=== PATIENT | female | born 1975 | race Caucasian/White ===

== ENCOUNTER 2022-07-01 10:22 | Emergency (ER) | payer OTHER, MEDICAID ==
[~2022-07-01] VITALS: Ht 165.1 cm; Wt 62.0 kg
[2022-07-01 10:48] LABS: BASOPHILS # (AUTO) 0.1 X10'3 (0-0.2); BASOPHILS % (AUTO) 0.4 % (0-1); EOSINOPHILS # (AUTO) 0.2 X10'3 (0-0.9); EOSINOPHILS % (AUTO) 1.2 % (0-6); HEMOGLOBIN 12.1 g/dl (12.0-16.0); LYMPHOCYTES # (AUTO) 3.1 X10'3 (1.1-4.8); LYMPHOCYTES % (AUTO) 17.7 % (21-51); MEAN CORPUSCULAR HEMOGLOBIN 24.5 PG (27.0-31.0); MEAN CORPUSCULAR HGB CONC 31.8 g/dL (33.0-36.5); MEAN CORPUSCULAR VOLUME 77.1 FL (78-98); MEAN PLATELET VOLUME 7.6 FL (7.4-10.4); MONOCYTES # (AUTO) 0.6 X10'3 (0-0.9); MONOCYTES % (AUTO) 3.7 % (2-12); NEUTROPHILS # (AUTO) 13.3 X10'3 (1.8-7.7); PLATELET COUNT 371 X10'3 (140-440); RED BLOOD COUNT 4.93 X10'6 (4.20-5.60); RED CELL DISTRIBUTION WIDTH 18.6 % (11.5-14.5); WHITE BLOOD COUNT 17.3 X10'3 (4.5-11.0)
[2022-07-01 11:00] LABS: ALANINE AMINOTRANSFERASE 20 U/L (12-78); ALBUMIN 3.9 G/DL (3.4-5.0); ALBUMIN/GLOBULIN RATIO 0.9 (1.1-1.5); ALKALINE PHOSPHATASE 78 IU/L (46-116); AMYLASE 71 U/L (25-115); ANION GAP 8 (8-16); ASPARTATE AMINO TRANSFERASE 15 U/L (10-37); BILIRUBIN,TOTAL 0.4 MG/DL (0.1-1.0); BLOOD UREA NITROGEN 10 MG/DL (7-18); BUN/CREATININE RATIO 15.6 (6.6-38.0); CALCIUM 9.4 MG/DL (8.5-10.1); CHLORIDE 101 MMOL/L (99-107); CREATININE 0.64 MG/DL (0.40-0.90); GLUCOSE 100 MG/DL (70-104); LIPASE 144 U/L (73-393); POTASSIUM 3.9 MMOL/L (3.5-5.1); SODIUM 136 MMOL/L (135-145); TOTAL CARBON DIOXIDE 26.8 MMOL/L (24-32); TOTAL PROTEIN 8.4 G/DL (6.4-8.2); eGFR > 90 ML/MIN
[2022-07-01 11:40] LABS: URINE HCG NEGATIVE (NEG)
[2022-07-01 11:45] LABS: CLARITY,URINE CLOUDY (Clear); GLUCOSE, URINE NEGATIVE (Neg); KETONES,URINE TRACE mg/dl (Neg); LEUKOCYTE ESTERASE ,URINE NEGATIVE (Neg); NITRITES, URINE POSITIVE (Neg); OCCULT BLOOD,URINE SMALL (Neg); PH,URINE 5.5 (4.8-8.0); PROTEIN,URINE TRACE mg/dl (Neg); UROBILINOGEN,URINE 0.2 E.U/dL (0.2-1.0)
[2022-07-01 11:55] LABS: COLOR,URINE DARK YELLOW (Yellow); UA COLLECTION TYPE CLN CATCH MIDSTREAM
[2022-07-01 12:00] LABS: ANISOCYTOSIS 2+; MICROCYTOSIS 1+; PLATELET ESTIMATE NORMAL
[2022-07-01 12:09] LABS: BACTERIA,URINE 4+ /HPF (Neg); MUCUS STRANDS MODERATE /LPF (Neg); RBC,URINE 0-2 /HPF (0-2); SQUAMOUS EPITHELIAL CELL,UR MODERATE /LPF (FEW); WBC,URINE 0-4 /HPF (0-4)
[2022-07-01] MEDS ORDERED: ondansetron/PF 4mg/2ml inj IV ONE (12:50)
[2022-07-01] MEDS ORDERED: morphine 4 MG/ML inj SYRINge IV ONE (12:50)
[2022-07-01] MEDS ORDERED: nitrofuran monohydrate/nitrofuran macrocrysal 100 MG (MacroBID) capsule PO ONE (13:40)
[2022-07-01] MEDS ORDERED: LIDOcaine Viscous 15ml cup MM PRN (15:00)
[2022-07-01] MEDS ORDERED: magnesium hydroxide 30ml (MOM) UD suspension PO ONE (15:00)
[2022-07-01] MEDS ORDERED: OMEP40CA21 PO (15:26)
[2022-07-01] MEDS ORDERED: SUCR1TAB PO (15:26)
[2022-07-01] MEDS ORDERED: DICY10CA88 PO (15:49)
[2022-07-01 16:12] VITALS: BP 140/94
[2022-07-01] MEDS ORDERED: NITR100C6 PO (16:45)
== END 2022-07-01 16:17 | disposition home or self-care (01) ==
LOC: ER 10:23
DX: R10.13 Epigastric pain (principal); Z88.1 Allergy status to other antibiotic agents; Z79.899 Other long term (current) drug therapy
CPT/HCPCS: 36415; 74176; 76700; 80053; 81001; 81025; 82150; 83690; 85008; 85025; 87077; 87088; 87186; 93005; 96374; 96375; 99285; J2270; J2405

== ENCOUNTER 2022-07-06 17:44 | Emergency (ER) | payer OTHER, MEDICAID ==
[~2022-07-06] VITALS: Ht 165.1 cm; Wt 62.0 kg
[~2022-07-06 17:44] MED LIST: DICY10CA88 PO; NITR100C6 PO; OMEP40CA21 PO; SUCR1TAB PO
[2022-07-06] MEDS ORDERED: morphine 4 MG/ML inj SYRINge IV PRN (18:00)
[2022-07-06] MEDS ORDERED: ondansetron/PF 4mg/2ml inj IV ONE (18:00)
[2022-07-06] MEDS ORDERED: normal saline 1000ML IV soln IVB ONE (18:00)
[2022-07-06] MEDS: diatr meglu/diatrizoate 30ml oral sol.-(3 dose) bottle PO SCH ×2 (18:00→18:45)
[2022-07-06 18:32] LABS: BASOPHILS # (AUTO) 0.1 X10'3 (0-0.2); BASOPHILS % (AUTO) 0.9 % (0-1); EOSINOPHILS # (AUTO) 0.3 X10'3 (0-0.9); EOSINOPHILS % (AUTO) 3.3 % (0-6); HEMATOCRIT 36.8 % (35.0-45.0); HEMOGLOBIN 11.5 g/dl (12.0-16.0); LYMPHOCYTES # (AUTO) 3.7 X10'3 (1.1-4.8); LYMPHOCYTES % (AUTO) 36.8 % (21-51); MEAN CORPUSCULAR HGB CONC 31.1 g/dL (33.0-36.5); MEAN CORPUSCULAR VOLUME 77.2 FL (78-98); MEAN PLATELET VOLUME 7.7 FL (7.4-10.4); MONOCYTES # (AUTO) 0.5 X10'3 (0-0.9); MONOCYTES % (AUTO) 5.3 % (2-12); NEUTROPHILS # (AUTO) 5.4 X10'3 (1.8-7.7); NEUTROPHILS % (AUTO) 53.7 % (42-75); PLATELET COUNT 340 X10'3 (140-440); RED BLOOD COUNT 4.77 X10'6 (4.20-5.60); RED CELL DISTRIBUTION WIDTH 18.3 % (11.5-14.5); WHITE BLOOD COUNT 10.1 X10'3 (4.5-11.0)
[2022-07-06 18:45] LABS: ALANINE AMINOTRANSFERASE 18 U/L (12-78); ALBUMIN 3.9 G/DL (3.4-5.0); ALBUMIN/GLOBULIN RATIO 0.9 (1.1-1.5); ALKALINE PHOSPHATASE 79 IU/L (46-116); ANION GAP 8 (8-16); ASPARTATE AMINO TRANSFERASE 21 U/L (10-37); BILIRUBIN,TOTAL 0.3 MG/DL (0.1-1.0); BLOOD UREA NITROGEN 12 MG/DL (7-18); BUN/CREATININE RATIO 21.4 (6.6-38.0); CALCIUM 9.1 MG/DL (8.5-10.1); CHLORIDE 101 MMOL/L (99-107); CREATININE 0.56 MG/DL (0.40-0.90); GLUCOSE 99 MG/DL (70-104); LIPASE 160 U/L (73-393); POTASSIUM 3.8 MMOL/L (3.5-5.1); SODIUM 136 MMOL/L (135-145); TOTAL CARBON DIOXIDE 27.3 MMOL/L (24-32); TOTAL PROTEIN 8.2 G/DL (6.4-8.2); eGFR > 90 ML/MIN
[2022-07-06 19:31] LABS: CLARITY,URINE SLIGHTLY CLOUDY (Clear); COLOR,URINE YELLOW (Yellow); GLUCOSE, URINE NEGATIVE (Neg); KETONES,URINE NEGATIVE (Neg); LEUKOCYTE ESTERASE ,URINE NEGATIVE (Neg); NITRITES, URINE NEGATIVE (Neg); OCCULT BLOOD,URINE NEGATIVE (Neg); PH,URINE 5.5 (4.8-8.0); PROTEIN,URINE NEGATIVE (Neg); UROBILINOGEN,URINE 0.2 E.U/dL (0.2-1.0)
[2022-07-06 19:41] LABS: UA COLLECTION TYPE CLN CATCH MIDSTREAM
[2022-07-06 19:53] LABS: WBC,URINE 0-4 /HPF (0-4)
[2022-07-06 19:54] LABS: BACTERIA,URINE FEW /HPF (Neg); MUCUS STRANDS FEW /LPF (Neg); SQUAMOUS EPITHELIAL CELL,UR MODERATE /LPF (FEW)
[2022-07-06] MEDS ORDERED: iohexol 300mg/ml 100ml inj. ONE (20:05)
[2022-07-06 20:36] VITALS: BP 157/99
--- NOTE | 2022-07-06 21:58 | NUR ---
Agree with assessment done by CANVAS SHRINKER.
== END 2022-07-06 22:20 | disposition home or self-care (01) ==
LOC: ER 17:45
DX: R10.13 Epigastric pain (principal); Z88.1 Allergy status to other antibiotic agents
CPT/HCPCS: 36415; 74177; 80053; 81001; 83690; 85025; 96361; 96374; 96375; 99285; J2270; J2405; J3490; J7030; Q9963; Q9967

== ENCOUNTER 2022-10-03 20:36 | Emergency (ER) | payer OTHER, MEDICAID ==
[~2022-10-03] VITALS: Ht 165.1 cm; Wt 63.6 kg
[~2022-10-03 20:36] MED LIST changes: -DICY10CA88 PO; -OMEP40CA21 PO
[2022-10-03] MEDS ORDERED: OXYC-150 PO (22:29)
[2022-10-03] MEDS ORDERED: oxyCODONE/APAP 10/325mg tablet PO ONE (22:30)
[2022-10-03 22:58] VITALS: BP 155/95
== END 2022-10-03 22:59 | disposition home or self-care (01) ==
LOC: ER 20:37
DX: M54.50 Low back pain, unspecified (principal); Z88.1 Allergy status to other antibiotic agents
CPT/HCPCS: 99283

== ENCOUNTER 2023-03-17 15:16 | Emergency (ER) | payer OTHER, MEDICAID ==
[~2023-03-17] VITALS: Ht 165.1 cm; Wt 58.6 kg
[~2023-03-17 15:16] MED LIST changes: +OXYC-150 PO
[2023-03-17 15:17] VITALS: TEMP 98.9
--- NOTE | 2023-03-17 16:44 | NUR ---
Silva ryan in ED - 03/17/23 at 1645 by TAI NO INJURIES DECLARED BY PT.
--- NOTE | 2023-03-17 16:45 | NUR ---
CAFETERIA AIDE ASSESSMENT REVIEWED BY ANNA RN; APPROVED
[2023-03-17] MEDS ORDERED: ketorolac trometh inj. 60 MG/2 ML VIAL IM ONE (17:05)
[2023-03-17] MEDS ORDERED: CYCL-1 PO (17:07)
[2023-03-17] MEDS ORDERED: PRED20TA PO (17:07)
[2023-03-17 17:42] VITALS: BP 130/66; PULSE 68; RESP 16; O2SAT 96
--- NOTE | 2023-03-17 18:04 | NUR ---
NAVIGATING OFFICER ASSESSMENT REVIEWED BY ANNA RN; APPROVED
== END 2023-03-17 17:42 | disposition home or self-care (01) ==
LOC: ER 15:17
DX: S39.012A Strain of muscle, fascia and tendon of lower back, initial encounter (principal); F17.200 Nicotine dependence, unspecified, uncomplicated; Z88.1 Allergy status to other antibiotic agents; Z79.899 Other long term (current) drug therapy; W18.40XA Slipping, tripping and stumbling without falling, unspecified, initial encounter; Y93.89 Activity, other specified; Y92.89 Other specified places as the place of occurrence of the external cause; Y99.8 Other external cause status
CPT/HCPCS: 96372; 99283; J1885

== ENCOUNTER 2023-08-19 11:35 | Emergency (ER) | payer OTHER, MEDICAID ==
[~2023-08-19] VITALS: Ht 165.1 cm; Wt 68.2 kg
[~2023-08-19 11:35] MED LIST changes: +CYCL-1 PO
[2023-08-19 11:37] VITALS: BP 157/99; PULSE 103; TEMP 98; O2SAT 99
[2023-08-19] MEDS ORDERED: ketorolac trometh inj. 60 MG/2 ML VIAL IM ONE (14:00)
[2023-08-19] MEDS ORDERED: PRED20TA PO (14:00)
[2023-08-19] MEDS: diazepam inj 5 MG/ML inj. IM ONE (14:40)
[2023-08-19 14:41] VITALS: RESP 16
[2023-08-19] MEDS: ketorolac trometh. 30mg/ml inj. IM ONE (14:41)
== END 2023-08-19 14:54 | disposition home or self-care (01) ==
LOC: ER 11:35
DX: S39.012A Strain of muscle, fascia and tendon of lower back, initial encounter (principal); M54.31 Sciatica, right side; F17.200 Nicotine dependence, unspecified, uncomplicated; Z88.1 Allergy status to other antibiotic agents; Z79.899 Other long term (current) drug therapy; W19.XXXA Unspecified fall, initial encounter; Y93.89 Activity, other specified; Y92.89 Other specified places as the place of occurrence of the external cause; Y99.8 Other external cause status
CPT/HCPCS: 96372; 99284; J1885; J3360; L4360

== ENCOUNTER 2024-06-16 12:12 | Emergency (ER) | payer OTHER, MEDICAID ==
[~2024-06-16] VITALS: Ht 165.1 cm; Wt 68.1 kg
[2024-06-16 12:17] VITALS: BP 162/91; PULSE 97; O2SAT 98
[2024-06-16] MEDS ORDERED: HYDR-3965 PO (14:09)
[2024-06-16 14:18] VITALS: RESP 16; TEMP 98
[2024-06-18] MEDS ORDERED: ONDA-243 PO (12:52)
[2024-06-18] MEDS ORDERED: HYDR-3965 PO (12:52)
== END 2024-06-16 14:19 | disposition home or self-care (01) ==
LOC: ER 12:13
DX: M54.2 Cervicalgia (principal); M54.89 Other dorsalgia; Z88.1 Allergy status to other antibiotic agents; Z79.899 Other long term (current) drug therapy; W18.39XA Other fall on same level, initial encounter; Y93.89 Activity, other specified; Y92.89 Other specified places as the place of occurrence of the external cause; Y99.8 Other external cause status
CPT/HCPCS: 99284

== ENCOUNTER 2024-11-09 11:36 | Emergency (ER) | payer OTHER, MEDICAID ==
[~2024-11-09] VITALS: Ht 165.1 cm; Wt 66.8 kg
[~2024-11-09 11:36] MED LIST changes: +HYDR-3965 PO; +ONDA-243 PO
[2024-11-09 11:55] VITALS: TEMP 98.5
[2024-11-09 13:10] LABS: BASOPHILS % (AUTO) 0.3 % (0-1); EOSINOPHILS # (AUTO) 0.2 X10'3 (0-0.9); EOSINOPHILS % (AUTO) 1.7 % (0-6); HEMATOCRIT 35.6 % (35.0-45.0); HEMOGLOBIN 10.9 g/dl (12.0-16.0); LYMPHOCYTES # (AUTO) 2.4 X10'3 (1.1-4.8); LYMPHOCYTES % (AUTO) 23.2 % (21-51); MEAN CORPUSCULAR HEMOGLOBIN 21.4 PG (27.0-31.0); MEAN CORPUSCULAR HGB CONC 30.6 g/dL (33.0-36.5); MEAN CORPUSCULAR VOLUME 70.1 FL (78-98); MEAN PLATELET VOLUME 7.8 FL (7.4-10.4); MONOCYTES # (AUTO) 0.5 X10'3 (0-0.9); MONOCYTES % (AUTO) 4.7 % (2-12); NEUTROPHILS # (AUTO) 7.2 X10'3 (1.8-7.7); NEUTROPHILS % (AUTO) 70.1 % (42-75); PLATELET COUNT 392 X10'3 (140-440); RED BLOOD COUNT 5.08 X10'6 (4.20-5.60); RED CELL DISTRIBUTION WIDTH 19.3 % (11.5-14.5); WHITE BLOOD COUNT 10.3 X10'3 (4.5-11.0)
[2024-11-09 13:34] LABS: ALANINE AMINOTRANSFERASE 18 U/L (12-78); ALBUMIN 3.6 G/DL (3.4-5.0); ALBUMIN/GLOBULIN RATIO 0.9 (1.1-1.5); ALKALINE PHOSPHATASE 81 IU/L (46-116); ANION GAP 11 (8-16); ASPARTATE AMINO TRANSFERASE 12 U/L (10-37); BILIRUBIN,TOTAL 0.2 MG/DL (0.1-1.0); BLOOD UREA NITROGEN 9 MG/DL (7-18); BUN/CREATININE RATIO 13.8 (10.0-20.0); CALCIUM 9.1 MG/DL (8.5-10.1); CHLORIDE 102 MMOL/L (99-107); CREATININE 0.65 MG/DL (0.40-0.90); GLUCOSE 86 MG/DL (70-104); LIPASE 38 U/L (16-77); POTASSIUM 4.6 MMOL/L (3.5-5.1); SODIUM 140 MMOL/L (135-145); TOTAL CARBON DIOXIDE 27.4 MMOL/L (24-32); TOTAL PROTEIN 7.6 G/DL (6.4-8.2); eCRCL 94 ML/MIN; eGFR > 90 ML/MIN
--- NOTE | 2024-11-09 15:12 | Physician Documentation ---
History of Present Illness Chief Complaint: Abdominal Pain w/vomiting Stated Complaint: DIVERTICULITIS/UTI Time Seen by MD: 14:36 Primary Medical Doctor: SUZY BEAR 49-year-old female presents to the ED with a complaint of nausea and general illness. States she is recently being treated for diverticulitis and has 10 years of developing diverticulitis. She was placed on ciprofloxacin and Katie trim. She started taking the antibiotics and then developed a nausea and has been unable to hold any food down. Day of Onset: Nov 09, 2024 Medication Reconciliation Allergies: Coded Allergies: doxycycline (Unverified Allergy, Unknown, 11/09/24) Scheduled Cyclobenzaprine* (Cyclobenzaprine*), 1 TAB PO TID Cyclobenzaprine* (Cyclobenzaprine*), 1 TAB PO TID Nitrofurantoin Monohyd/M-Cryst (Macrobid 100 mg Capsule), 1 CAP PO Q12H Scheduled PRN Hydrocodone Bit/Acetaminophen 5/325 MG ([place] 5/325 MG), 1 TAB PO TID PRN PRN for pain ONDANSETRON ODT 4mg tablet (Ondansetron Odt), 1 TAB PO Q6H PRN PRN for nausea/vomiting Oxycodone HCl/Acetaminophen (Percocet 10-325 mg Tablet), 1 TAB PO TID PRN PRN for moderate or severe pain 4-10 Prochlorperazine Maleate (Compazine), 1 TAB PO QID PRN PRN for nausea/vomiting Sucralfate (Sucralfate), 1 GM PO TID PRN for pain Past Medical History Past Medical History: No Pertinent History, Chronic Back Pain Past Surgical History: noncontributory Drug Use: none Lives In: Home Physical Exam Vital Signs: Temperature: 98.5, Source: Temporal, Heart Rate: 92, Respiratory Rate: 16, BP: 164/94, Pulse Oximetry: 98, Weight: 66.800 Oxygen Flow Rate: 0 Progress Results/Orders Results/Orders Completed Orders - STEFFANIE ARMENTA NP Metoclopramide Inj (Reglan Inj) (11/09/24 15:00) Diphenhydramine Inj (Benadryl Inj.) (11/09/24 15:00) Normal Saline 1000ml (Sodium Chloride 10 (11/09/24 15:00) Vital Signs 11/09/24 11:55 Temp 98.5 Pulse 92 Resp 16 B/P (MAP) 164/94 Pulse Ox 98 O2 Flow Rate 0 Laboratory Tests Test 11/09/24 12:41 White Blood Count 10.3 Red Blood Count 5.08 Hemoglobin 10.9 L Hematocrit 35.6 Mean Corpuscular Volume 70.1 L Mean Corpuscular Hemoglobin 21.4 L Mean Corpuscular Hemoglobin Concent 30.6 L Red Cell Distribution Width 19.3 H Platelet Count 392 Mean Platelet Volume 7.8 Neutrophils (%) (Auto) 70.1 Lymphocytes (%) (Auto) 23.2 Monocytes (%) (Auto) 4.7 Eosinophils (%) (Auto) 1.7 Basophils (%) (Auto) 0.3 Neutrophils # (Auto) 7.2 Lymphocytes # (Auto) 2.4 Monocytes # (Auto) 0.5 Eosinophils # (Auto) 0.2 Basophils # (Auto) 0.0 CBC Comment Sodium Level 140 Potassium Level 4.6 Chloride Level 102 Carbon Dioxide Level 27.4 Anion Gap 11 Blood Urea Nitrogen 9 Creatinine 0.65 Estimated GFR/1.73 m2 > 90 BUN/Creatinine Ratio 13.8 Glucose Level 86 Calcium Level 9.1 Total Bilirubin 0.2 Aspartate Amino Transf (AST/SGOT) 12 Alanine Aminotransferase (ALT/SGPT) 18 Alkaline Phosphatase 81 Total Protein 7.6 Albumin 3.6 Globulin 4.0 Albumin/Globulin Ratio 0.9 L Lipase 38 Chemistry Comments Medical Decision Making Findings This patient does not present as toxic or requiring further evaluation or hospitalization. This is because she is already treating being treated in the outpatient setting with ciprofloxacin and Bactrim. Treated her for her symptoms make sure she was hydrated via IV fluids and I am discharging her with a new antiemetic to help with her ongoing symptoms as she will need to take her antibiotics. Differential Dx:Considerations: Include: AAA, -Complete, - Incomplete, -Inevitable, -Missed, -Threatened, Abruptio placentae, Angina/UT, Aortic dissection, Appendicitis, Bowel obstruction, Cholangitis, Cholelithasis, Constipation, Diverticular disease, Esophageal rupture, Esophagitis, Gastritis/PUD, Gastroenteritis, GI hemorrhage, Hernia, Hepatitis, Inflammatory BD, Ischemic bowel, Ovarian cyst/torsion, Pancreatitis, PID, Porphyria, Trauma, intraabdominal, Urinary obstruction, Urinary tract infection, Urolithiasis, Other Departure Disposition: HOME / SELF CARE / HOMELESS Impression: Primary Impression: Diverticulitis Additional Instructions: Take your antibiotics as directed for your diverticulitis. I I sent a different antiemetic to help with your nausea vomiting Referrals: NO PRIMARY CARE PROVIDER (PCP) Prescriptions Prochlorperazine Maleate (Compazine) 10 Mg Tablet 1 TAB PO QID PRN PRN for nausea/vomiting, #12 TAB Prov: STEFFANIE ARMENTA NP 11/09/24 Education Educated: Patient Educated regarding: diagnosis Signature Scribe Signature: gf Attestation: Transfer orders for [facility]: At this time there is no evidence of an emergent medical condition that would preclude (admission/transfer) to a psychiatric unit via [facility] protocol for further psychiatric, as well as medical evaluation and treatment. At this time I have no reason to believe that transfer via [facility] protocol would have serious medical compromise in the patient's health. STEFFANIE ARMENTA NP Nov 09, 2024 15:12
[2024-11-09] MEDS: diphenhydrAMINE 50 mg/ml inj IV ONE (15:55)
[2024-11-09] MEDS: metoclopramide 5 mg/ml inj IV ONE (15:55)
[2024-11-09] MEDS: normal saline 1000ML IV soln IVB ONE (15:55)
[2024-11-09] MEDS ORDERED: PROC-8 PO (16:07)
[2024-11-09 16:28] LABS: URINE HCG NEGATIVE (NEG)
[2024-11-09 16:39] LABS: BILIRUBIN,URINE NEGATIVE (Neg); COLOR,URINE YELLOW (Yellow); GLUCOSE, URINE NEGATIVE (Neg); KETONES,URINE TRACE mg/dl (Neg); LEUKOCYTE ESTERASE ,URINE NEGATIVE (Neg); NITRITES, URINE NEGATIVE (Neg); OCCULT BLOOD,URINE TRACE-INTACT (Neg); PH,URINE 5.5 (4.8-8.0); PROTEIN,URINE NEGATIVE (Neg); UROBILINOGEN,URINE 0.2 E.U/dL (0.2-1.0)
[2024-11-09 16:46] LABS: CLARITY,URINE SLIGHTLY CLOUDY (Clear)
[2024-11-09 16:47] LABS: MUCUS STRANDS MODERATE /LPF (Neg); UA COLLECTION TYPE CLN CATCH MIDSTREAM
[2024-11-09 16:48] LABS: RBC,URINE 0-2 /HPF (0-2); WBC,URINE 0-4 /HPF (0-4)
[2024-11-09 16:49] LABS: BACTERIA,URINE 3+ /HPF (Neg)
[2024-11-09 16:51] LABS: SQUAMOUS EPITHELIAL CELL,UR MODERATE /LPF (FEW)
[2024-11-09 17:26] VITALS: BP 171/98; PULSE 79; RESP 18; O2SAT 100
== END 2024-11-09 17:27 | disposition home or self-care (01) ==
LOC: ER 11:37
DX: K57.92 Diverticulitis of intestine, part unspecified, without perforation or abscess without bleeding (principal); Z88.1 Allergy status to other antibiotic agents; Z88.8 Allergy status to other drugs, medicaments and biological substances
CPT/HCPCS: 80053; 81001; 81025; 83690; 85025; 96361; 96374; 96375; 99284; J1200; J2765; J7030

== ENCOUNTER 2025-02-06 16:48 | Emergency (ER) | payer OTHER, MEDICAID ==
[~2025-02-06] VITALS: Ht 165.1 cm; Wt 64.5 kg
[~2025-02-06 16:48] MED LIST changes: +PROC-8 PO
[2025-02-06 16:51] VITALS: TEMP 98.7
[2025-02-06 17:25] LABS: MEAN PLATELET VOLUME 7.2 FL (7.4-10.4); RED CELL DISTRIBUTION WIDTH 18.5 % (11.5-14.5)
[2025-02-06 17:32] LABS: LEUKOCYTE ESTERASE ,URINE NEGATIVE (Neg); NITRITES, URINE POSITIVE (Neg); OCCULT BLOOD,URINE SMALL (Neg)
[2025-02-06 17:33] LABS: UA COLLECTION TYPE CLN CATCH MIDSTREAM; URINE HCG NEGATIVE (NEG)
[2025-02-06 17:39] LABS: CREATININE 0.70 MG/DL (0.40-0.90); TOTAL CARBON DIOXIDE 24.9 MMOL/L (24-32); eCRCL 87 ML/MIN; eGFR 89 ML/MIN
[2025-02-06 17:43] LABS: SQUAMOUS EPITHELIAL CELL,UR FEW /LPF (FEW)
[2025-02-06 17:48] LABS: PLATELET ESTIMATE INCREASED
--- NOTE | 2025-02-06 18:49 | Physician Documentation ---
History of Present Illness ~ Chief Complaint: Abdominal Pain w/vomiting Stated Complaint: FEVER, CHILLS Time Seen by MD: 18:29 Primary Medical Doctor: SUZY Mode of Arrival: POV HPI Patient presents to the emergency room for evaluation of abdominal pain over the past few days. No prior instances. History of gastric bypass and partial hysterectomy and endometriosis. Positive fevers of 102. Positive nausea and vomiting. Bowel movements regular. No dysuria reported but she feels she may have a urinary tract infection as she has been going often and it smells. Medication Reconciliation Allergies: Coded Allergies: doxycycline (Unverified Allergy, Unknown, 11/09/24) Scheduled Cyclobenzaprine* (Cyclobenzaprine*), 1 TAB PO TID Cyclobenzaprine* (Cyclobenzaprine*), 1 TAB PO TID Nitrofurantoin Monohyd/M-Cryst (Macrobid 100 mg Capsule), 1 CAP PO Q12H Scheduled PRN Hydrocodone Bit/Acetaminophen 5/325 MG ([place] 5/325 MG), 1 TAB PO TID PRN PRN for pain ONDANSETRON ODT 4mg tablet (Ondansetron Odt), 1 TAB PO Q6H PRN PRN for nausea/vomiting Oxycodone HCl/Acetaminophen (Percocet 10-325 mg Tablet), 1 TAB PO TID PRN PRN for moderate or severe pain 4-10 Prochlorperazine Maleate (Compazine), 1 TAB PO QID PRN PRN for nausea/vomiting Sucralfate (Sucralfate), 1 GM PO TID PRN for pain Past Medical History Past Medical History: No Pertinent History, Chronic Back Pain Past Surgical History: noncontributory Drug Use: none Lives In: Home Review of Systems ROS All review of systems negative except as per HPI Physical Exam Vital Signs: Temperature: 98.7, Source: Oral, Heart Rate: 99, Respiratory Rate: 16, BP: 180/109, Pulse Oximetry: 99, Weight: 64.500 Oxygen Flow Rate: 0 Physical Exam General: Patient is awake, alert, oriented x4 in no acute distress Head: Normocephalic and atraumatic. Eyes: Conjunctival normal. EOMI. PERRL. ENT: Mucous membranes moist. Neck: Supple, trachea is midline. Chest: Clear to auscultation bilaterally without rales, rhonchi, or wheezes. There is no accessory muscle use or retractions. Cardiac: RRR without murmurs, gallops, or rubs. Abd: Soft, nondistended, epigastric tenderness to palpation without peritonitis Progress Results/Orders Results/Orders Orders - FEDERICO MACDONALD MD Ultrasound Of Abdomen (02/06/25 18:49) Ct Abdomen Pelvis (02/06/25 19:10) Completed Orders - FEDERICO MACDONALD MD Normal Saline 1000ml (0.9% Sodium Chlori (02/06/25 18:50) Ondansetron Inj. (Zofran 4mg/2ml Vial) (02/06/25 18:50) Ceftriaxone/G0i-Zrlvhyor 1gm (Rocephin 1 (02/06/25 18:50) Ketorolac Trometh 15mg/Ml Vial (Toradol (02/06/25 18:50) Famotidine/Pf Iv Inj (Pepcid Iv Inj) (02/06/25 18:50) Pantoprazole 40mg Iv (Protonix 40mg Iv) (02/06/25 18:50) Ultrasound Of Abdomen (02/06/25 18:49) Ct Abdomen Pelvis (02/06/25 19:10) Procalcitonin (02/06/25 18:49) Iohexol 300mg/Ml 100ml Inj. (Omnipaque-3 (02/06/25 19:07) Mag & Alum Hydrox/Simeth Susp (Maalox Or (02/06/25 20:00) Lidocaine 2% Viscous (Xylocaine 2% Visco (02/06/25 20:00) Hs Troponin I W Calculations (02/06/25 20:31) Medications Received in ER Medications (Trade) Dose Ordered Sig/Debbie Route PRN Reason Start Time Stop Time Status Last Admin Dose Admin Sodium Chloride 1,000 ml @ 1,000 mls/hr ONCE ONCE IV 02/06/25 18:50 02/06/25 19:49 DC 02/06/25 20:22 1,000 MLS/HR (Zofran 4mg/2ml vial) 8 mg ONCE ONCE IV 02/06/25 18:50 02/06/25 18:54 DC 02/06/25 19:05 8 MG Ceftriaxone Sodium 50 ml @ 100 mls/hr ONCE ONCE IV 02/06/25 18:50 02/06/25 19:19 DC 02/06/25 19:32 100 MLS/HR (Toradol injection) 15 mg ONCE ONCE IV 02/06/25 18:50 02/06/25 18:54 DC 02/06/25 19:09 15 MG (Pepcid IV inj) 20 mg ONCE ONCE IV 02/06/25 18:50 02/06/25 18:54 DC 02/06/25 19:10 20 MG (Protonix 40mg IV) 40 mg ONCE ONCE IV 02/06/25 18:50 02/06/25 18:54 DC 02/06/25 19:11 40 MG (Maalox oral suspension) 30 ml ONCE ONCE PO 02/06/25 20:00 02/06/25 20:01 DC 02/06/25 20:21 30 ML (Xylocaine 2% Viscous 15mL cup) 15 ml ONCE ONCE MM 02/06/25 20:00 02/06/25 20:01 DC 02/06/25 20:21 15 ML Vital Signs 02/06/25 02/06/25 02/06/25 02/06/25 16:51 17:59 19:00 19:09 Temp 98.7 Pulse 99 80 Resp 16 16 16 16 B/P (MAP) 180/109 137/102 (114) Pulse Ox 99 99 O2 Flow Rate 0 02/06/25 02/06/25 19:26 20:29 Pulse 76 Resp 16 16 B/P (MAP) 169/109 (129) Pulse Ox 99 O2 Flow Rate 0 Laboratory Tests Test 02/06/25 16:55 02/06/25 17:13 02/06/25 20:41 Urine Specimen Description Cln catch midstream Urine Color Yellow Urine Clarity Clear Urine pH 5.5 Urine Specific Shields >=1.030 Urine Protein Trace Urine Glucose (UA) Negative Urine Ketones 15 H Urine Occult Blood Small Urine Nitrite Positive H Urine Bilirubin Small Urine Urobilinogen 0.2 Urine Leukocyte Esterase Negative Urine RBC 3-10 Urine WBC 5-10 H Urine Squamous Epithelial Cells Few Urine Bacteria 4+ Urine Culture Indicated Indicated Volume Urine Centrifuged 10 ml Urine HCG, Qualitative Negative Urine Comment White Blood Count 11.1 H Red Blood Count 4.85 Hemoglobin 10.2 L Hematocrit 32.6 L Mean Corpuscular Volume 67.4 L Mean Corpuscular Hemoglobin 21.0 L Mean Corpuscular Hemoglobin Concent 31.2 L Red Cell Distribution Width 18.5 H Platelet Count 406 Mean Platelet Volume 7.2 L Neutrophils (%) (Auto) 64.6 Lymphocytes (%) (Auto) 28.5 Monocytes (%) (Auto) 4.6 Eosinophils (%) (Auto) 1.3 Basophils (%) (Auto) 1.0 Neutrophils # (Auto) 7.2 Lymphocytes # (Auto) 3.2 Monocytes # (Auto) 0.5 Eosinophils # (Auto) 0.1 Basophils # (Auto) 0.1 CBC Comment Platelet Estimate Increased Red Blood Cell Morphology Perf Polychromasia 1+ Hypochromasia 2+ Basophilic Stippling Anisocytosis 2+ Microcytosis 2+ Sodium Level 140 Potassium Level 4.5 Chloride Level 104 Carbon Dioxide Level 24.9 Anion Gap 11 Blood Urea Nitrogen 8 Creatinine 0.70 Estimated GFR/1.73 m2 89 BUN/Creatinine Ratio 11.4 Glucose Level 97 Calcium Level 9.0 Total Bilirubin 0.5 Aspartate Amino Transf (AST/SGOT) 16 Alanine Aminotransferase (ALT/SGPT) 18 Alkaline Phosphatase 81 Total Protein 8.4 H Albumin 3.7 Globulin 4.7 H Albumin/Globulin Ratio 0.8 L Lipase 35 Procalcitonin < 0.05 Chemistry Comments Troponin I High Sensitivity 6 Microbiology Date/Time Source Procedure Growth Status 02/06/25 17:44 Urine Clean Catch Midstream Urine Culture - Preliminary Culture received. Resulted Medical Decision Making Findings Patient presents to the emergency room with vomiting and abdominal pain as per HPI. Differentials include but are not limited to gastritis cholecystitis appendicitis diverticulitis pancreatitis therefore emergent labs and imaging indicated. Both ultrasound and CT scan is reassuring. Troponin negative. Patient had positive response to GI cocktail. I suspect gastritis and we will treat as such. No elevation of BUN and I do not suspect GI bleed Departure Disposition: 01 HOME / SELF CARE / HOMELESS Impression: Primary Impression: Acute gastritis Condition: Improved Discharge Instructions: Gastritis, Adult Referrals: NO PRIMARY CARE PROVIDER (PCP) Prescriptions Pantoprazole Sodium (PROTONIX tablet) 40 Mg Tablet. 1 TAB PO DAILY for 30 Days, #30 TAB 0 Refills Prov: FEDERICO MACDONALD MD 02/06/25 Ondansetron 8mg ODT (Ondansetron Odt) 8 Mg Tab.rapdis 1 TAB PO Q6H for nausea/vomiting for 3 Days, #12 TAB 0 Refills Prov: FEDERICO MACDONALD MD 02/06/25 Education Educated: Patient Educated regarding: diagnosis, treatment, need for follow up Signature Scribe Signature: No scribe Attestation: The note accurately reflects work and decisions made by me.Federico Macdonald MD 02/06/25 21:21 FEDERICO MACDONALD MD Feb 06, 2025 18:49
[2025-02-06] MEDS: ondansetron/PF 4mg/2ml inj IV ONE (19:05)
[2025-02-06] MEDS ORDERED: iohexol 300mg/ml 100ml inj. ONE (19:07)
[2025-02-06] MEDS: ketorolac trometh 15mg/ml vial 15 MG/ML ML IV ONE (19:09)
[2025-02-06] MEDS: famotidine/PF 10 mg/ml inj IV ONE (19:10)
[2025-02-06] MEDS: CefTRIAXone/D5W-Rocephin 1gm 50 ML IV ONE (19:32)
--- NOTE | 2025-02-06 19:50 | RADIOLOGY REPORT ---
Exam: CT CT ABDOMEN PELVIS W/ IV CONTRAST History: abd pain w fever Comparison Study: CT ABDOMEN PELVIS on DOS: 07/01/22, ULTRASOUND OF ABDOMEN on DOS: 07/01/22 TECHNIQUE: A digital production finisher image was obtained. During the uneventful, intravenous administration of contrast material, multislice data acquisition was obtained through the abdomen and pelvis. The data set was subsequently reconstructed into multiplanar reformats. RADIATION DOSE: CTDI vol 11.45 mGy. DLP 562.05 mGy.cm Findings: Lungs: Basilar atelectasis/scarring. Liver: Unremarkable. Spleen: Unremarkable. Pancreas: Unremarkable. Gallbladder: Unremarkable. Adrenals: Unremarkable Kidneys: Unremarkable. Pelvic Viscera: Prior hysterectomy. Vasculature: Mild atherosclerotic aortoiliac calcifications. Retroperitoneum: Unremarkable. Bowel: No bowel obstruction. Prior gastric bypass. Musculoskeletal: Unremarkable. Soft tissues: Unremarkable Impression: 1. No acute abdominopelvic abnormality.
--- NOTE | 2025-02-06 20:18 | RADIOLOGY REPORT ---
EXAM: US ULTRASOUND OF ABDOMEN HISTORY: suspected cholecystitis COMPARISON: CT CT ABDOMEN PELVIS W/ IV CONTRAST on DOS: 02/06/25 TECHNIQUE: Multiple longitudinal and transverse sonographic images of the abdomen were obtained. Doppler was applied as indicated. FINDINGS: [PANCREAS]: The visualized portions of the pancreas are unremarkable. [AORTA]: Normal [LIVER]: 15.2 cm. normal echogenicity and echotexture. There is no focal hepatic mass lesion detected. [GALLBLADDER]: Gallbladder wall measures 0.2 cm. There is no gallbladder sludge or shadowing gallstone. There is no sonographic Persaud sign. [BILIARY TREE]: Common bile duct measures 0.2 cm in diameter. no intrahepatic biliary ductal dilatation. [ASCITES]: No free fluid is demonstrated. [VESSELS]: The main portal vein is patent on color Doppler evaluation. The inferior vena cava is patent on color Doppler evaluation. [RIGHT KIDNEY]: 11.5 x 4.8 x 5.3 cm. normal cortical echogenicity and normal contour. No hydronephrosis. IMPRESSION: 1. No acute sonographic abnormality of the abdomen.
[2025-02-06] MEDS: mag hydrox/Alum hydrox/simeth 30ml oral suspension PO ONE (20:21)
[2025-02-06] MEDS: LIDOcaine 2% Viscous 15ml cup MM ONE (20:21)
[2025-02-06] MEDS: normal saline 1000ml 1,000 ML IV ONE (20:22)
[2025-02-06] MEDS ORDERED: ONDA-245 PO (21:20)
[2025-02-06] MEDS ORDERED: PANT-47 PO (21:20)
[2025-02-06 21:42] VITALS: BP 170/108; PULSE 71; RESP 16; O2SAT 99
== END 2025-02-06 21:43 | disposition home or self-care (01) ==
LOC: ER 16:48
DX: K29.00 Acute gastritis without bleeding (principal); Z88.1 Allergy status to other antibiotic agents
CPT/HCPCS: 36415; 74177; 76700; 80053; 81001; 81025; 83690; 84145; 84484; 85008; 85025; 87077; 87088; 87186; 96361; 96365; 96375; 99285; J0696; J1885; J2405; J2470; J3490; J7030; Q9967; 85007

== ENCOUNTER 2025-03-18 12:58 | Emergency (ER) | payer OTHER, MEDICAID ==
[~2025-03-18] VITALS: Ht 165.1 cm; Wt 67.8 kg
[~2025-03-18 12:58] MED LIST changes: +ONDA-245 PO; +PANT-47 PO
[2025-03-18 13:10] VITALS: BP 142/94; PULSE 97; TEMP 97.6; O2SAT 98
[2025-03-18 14:21] VITALS: RESP 18
--- NOTE | 2025-03-18 14:29 | Physician Documentation ---
History of Present Illness ~ Chief Complaint: Back Pain Stated Complaint: LOW BACK PAIN/FELL Time Seen by MD: 13:30 Primary Medical Doctor: [facility] Patient is seen today with complaints of acute on chronic back pain low back pain. Patient states he slipped in the rain about a week ago and tweaked her lower back on the right side and now has right-sided sciatica. Patient states he has been taking Tylenol and ibuprofen three 4 times a day and got a Toradol shot last week in the [place]. Patient states he had a gastric bypass in can not take too much ibuprofen. Denies any saddle anesthesia or changes in bowel or bladder habits. She has no other concern or complaint at this time. Medication Reconciliation Allergies: Coded Allergies: doxycycline (Unverified Allergy, Unknown, 03/18/25) Scheduled Cyclobenzaprine* (Cyclobenzaprine*), 1 TAB PO TID Cyclobenzaprine* (Cyclobenzaprine*), 1 TAB PO TID Nitrofurantoin Monohyd/M-Cryst (Macrobid 100 mg Capsule), 1 CAP PO Q12H Ondansetron 8mg ODT (Ondansetron Odt), 1 TAB PO Q6H Ondansetron 8mg ODT (Ondansetron Odt), 1 TAB PO Q6H Pantoprazole Sodium (PROTONIX tablet), 1 TAB PO DAILY Pantoprazole Sodium (PROTONIX tablet), 1 TAB PO DAILY Scheduled PRN Hydrocodone Bit/Acetaminophen 5/325 MG ([place] 5/325 MG), 1 TAB PO TID PRN PRN for pain ONDANSETRON ODT 4mg tablet (Ondansetron Odt), 1 TAB PO Q6H PRN PRN for nausea/vomiting Oxycodone HCl/Acetaminophen (Percocet 10-325 mg Tablet), 1 TAB PO TID PRN PRN for moderate or severe pain 4-10 Prochlorperazine Maleate (Compazine), 1 TAB PO QID PRN PRN for nausea/vomiting Sucralfate (Sucralfate), 1 GM PO TID PRN for pain Past Medical History Past Medical History: No Pertinent History, Chronic Back Pain Past Surgical History: noncontributory Drug Use: none Lives In: Home Review of Systems Constitutional: Denies: chills, fever, weakness Eyes: Denies: pain, blurred vision ENT: Denies: ear pain, nose pain, throat pain, mouth pain Respiratory: Denies: cough, shortness of breath Cardiovascular: Denies: chest pain, palpitations Gastrointestinal: Denies: abdominal pain, nausea, vomiting Genitourinary: Denies: burning, dysuria Female Genitalia: Denies: vaginal discharge, pelvic pain Neurological: Denies: headache, dizziness Musculoskeletal: Denies: pain, swelling Integumentary: Denies: rash, lesions Allergic/Immunologic: Denies: hives, itching Hematologic/Lymphatic: Denies: no symptoms reported Psychiatric: Denies: depression, anxiety Physical Exam Physical Exam Vital Signs: Temperature: 97.6, Source: Oral, Heart Rate: 97, Respiratory Rate: 18, BP: 142/94, Pulse Oximetry: 98, Weight: 67.800 Oxygen Flow Rate: 0 Physical Exam General: Awake and Alert, no acute distress. HEENT: Conjunctiva pink, Sclera clear, Mucus Membranes moist. Neck: Supple without masses and tenderness. Resp: Unlabored. Lungs clear to auscultation bilaterally. Heart: Regular Rate and rhythm, normal S1 and S2 without murmur, rub or gallop. Musculoskeletal: Patient on exam does have decreased range of motion of the lumbar spine in all planes of motion and is neurovascularly intact distally. Motor function intact distally. Strength intact. Extremities: No cyanosis,clubbing or edema. Skin: Warm and Dry. Progress Results/Orders Results/Orders Vital Signs 03/18/25 13:10 Temp 97.6 Pulse 97 Resp 18 B/P (MAP) 142/94 Pulse Ox 98 O2 Flow Rate 0 Medical Decision Making Additional information obtaine: N/A Findings Patient is seen today with complaints of acute on chronic back pain low back pain. Patient states he slipped in the rain about a week ago and tweaked her lower back on the right side and now has right-sided sciatica. Patient states he has been taking Tylenol and ibuprofen three 4 times a day and [facility] Patient states he had a gastric bypass in can not take too much ibuprofen. Denies any saddle anesthesia or changes in bowel or bladder habits. She has no other concern or complaint at this time. Patient was given dose of Percocet 10/325 mg by mouth in the ED today. Short prescription was sent to patient's pharmacy and patient will follow up with primary care for further eval and treatment and possible MRI imaging. Patient will return to ED with any worsening, concerning or changing symptoms. Differential Dx:Considerations: Cholelithiasis, DJD, Fracture, Musculoskeletal pain, Urinary tract infection Departure Disposition: HOME / SELF CARE / HOMELESS Impression: Primary Impression: Low back pain Qualified Codes: M54.41 - Lumbago with sciatica, right side Condition: Stable Discharge Instructions: Chronic Back Pain, Sciatica Additional Instructions: Patient was given dose of Percocet 10/325 mg by mouth in the ED today. Short prescription was sent to patient's pharmacy and patient will follow up with primary care for further eval and treatment and possible MRI imaging. Patient will return to ED with any worsening, concerning or changing symptoms. Referrals: NO PRIMARY CARE PROVIDER (PCP) Prescriptions Oxycodone HCl/Acetaminophen (Percocet 10-325 mg Tablet) 10 Mg-325 Mg Tablet 1 TAB PO TID PRN for pain for 5 Days, #15 TAB 0 Refills Prov: JANE MIR 03/18/25 Signature Scribe Signature: No scribe Attestation: No scribe JANE MIR Mar 18, 2025 14:29
[2025-03-18] MEDS ORDERED: OXYC-150 PO (14:32)
== END 2025-03-18 14:44 | disposition home or self-care (01) ==
LOC: ER 12:58
DX: M54.50 Low back pain, unspecified (principal); Z88.1 Allergy status to other antibiotic agents; Z79.899 Other long term (current) drug therapy
CPT/HCPCS: 99284